=== PATIENT | female | born 1965 | race Caucasian/White ===

== ENCOUNTER 2024-01-25 12:41 | Emergency (ER) | payer SELFPAY ==
[~2024-01-25] VITALS: Ht 170.2 cm; Wt 65.8 kg
[2024-01-25 12:46] VITALS: TEMP 98.2
[2024-01-25] MEDS: HYDROCODONE/APAP 5MG-325MG TAB PO ONE (13:36)
[2024-01-25] MEDS: ASPIRIN 325 MG TAB PO ONE (13:36)
[2024-01-25] MEDS ORDERED: ULTRAM 50MG50 MG PO (14:07)
[2024-01-25] MEDS ORDERED: ONDANSETRON ODT4 MG PO (14:17)
[2024-01-25 14:20] VITALS: PULSE 56; RESP 16; O2SAT 95
== END 2024-01-25 14:20 | disposition home or self-care (01) ==
LOC: FSED 12:46
DX: R07.89 Other chest pain (principal); R91.8 Other nonspecific abnormal finding of lung field; E11.65 Type 2 diabetes mellitus with hyperglycemia; R94.31 Abnormal electrocardiogram [ECG] [EKG]; Z85.118 Personal history of other malignant neoplasm of bronchus and lung; Z85.841 Personal history of malignant neoplasm of brain; Z85.05 Personal history of malignant neoplasm of liver
CPT/HCPCS: 71046; 80048; 81003; 84484; 85025; 93005; 99284